=== PATIENT | female | born 1970 | race Caucasian/White ===

== ENCOUNTER 2024-07-02 06:55 | Outpatient (CLI) | payer OTHER, SELFPAY ==
--- OUTSIDE RECORDS SUMMARY | 2024-07-02 07:00 | XMS_ITS | Clinical Summary ---
Author Organization [facility] [address] Address [address] [place] [address] Phone Care Team Providers Care Wage Adjuster Name Role Phone Dmitriy Smith MD Unavailable [phone] Dmitriy Smith MD Primary Care Provider [phone] Florentin Scott MD Unavailable [phone] Allergies Active Allergy Reactions Criticality Noted Date Comments Sulfamethoxazole-Trimethoprim Nausea & Vomiting Low 09/27/2022 Medications No known medications Active Problems Problem Noted Date Diagnosed Date Physical exam, annual 08/15/2023 Assessment & Plan (08/15/2023 9:23 AM CDT): Preventive exam; reviewed recommended preventive screenings and vaccinations. Encourage annual flu vaccine. Wear sunscreen/protective clothing when outdoors. -annual clinical account executive/well-woman exam -current on mammogram -due for Cologuard/colonoscopy 01/2025, recommended screening colonoscopy at that time. Previously Cologuard. Lipid screening 08/15/2023 Assessment & Plan (08/15/2023 9:24 AM CDT): Reviewed labs today with patient. BMI 27.0-27.9,adult 08/15/2023 Assessment & Plan (08/15/2023 9:25 AM CDT): Congratulated patient on 30 lb intentional weight loss over the past 1 year, she has significantly increased activity/exercise following right knee replacement. 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 Overview (06/07/2016): Agoraphobia Encounters Date Type Department Care Team Description 05/07/2024 11:30 AM DATA ANALYTICS SPECIALIST Ancillary Procedure [facility] [address] [place] [address] Encounter for screening mammogram for breast cancer 05/07/2024 10:50 AM DATA ANALYTICS SPECIALIST Office Visit [facility] [address] [place] [address] Ben Simpson MD Encounter for gynecological examination without abnormal finding (Primary Dx); Menopausal symptoms 05/07/2024 Orders Only [facility] [address] [place] [address] Ben Simpson MD Encounter for screening mammogram for malignant neoplasm of breast (Primary Dx) 04/12/2024 Orders Only [facility] [address] [place] [address] Ben Simpson MD Encounter for screening mammogram for breast cancer (Primary Dx) from Last 3 Months Immunizations Immunization Administration Dates Next Due Influenza LAIV (Nasal) 12/01/2020(Deferred: Veronica ent Refused) Influenza, Unspecified 08/15/2023(Deferr ed: Patient Refused),12/01/2022(Deferred: Patient Refused),05/31/2022(Deferred: Patient Refused),12/21/2021(Deferred: Patient Refused),12/01/2021(Deferred: Patient Refused),06/03/2017(Deferred: Patient Refused) Tdap 08/15/2009 Surgical History Surgery Date Site/Laterality Comments KNEE ARTHROSCOPY 03/03/1991 - 03/02/1992 Arthroscopy knee KNEE ARTHROSCOPY Arthroscopy knee HERNIA REPAIR 03/03/2006 - 03/02/2007 Right Hernia repair, groin REPLACEMENT TOTAL KNEE 03/03/2022 - 03/02/2023 Right Medical History Medical History Date Comments Hx Other Medical vag. yeast infe ction 09/08 Family History Medical History Relation Name Comments Breast cancer Maternal Grandmother Onset 40s Brain cancer Other Sibling Plz verifiy if sister or brother Brain cancer Sister Cancer, brain; Relation Name Status Comments Father Alive Maternal Grandmother Mother Alive Other Sibling Alive Sister Social History Tobacco Use Types Packs/Day Years Used Date Smoking Tobacco: Former Cigarettes 0.5 12 1 1 - 2002 Passive Smoke Exposure: Past Smokeless Tobacco: Never Tobacco Cessation:Counseling Given: Not Answered Alcohol Use Standard Drinks/Week Comments Yes 1 (1 standard drink = 0.6 oz pur e alcohol) 1 X MONTH AUDIT-C Answer Date Recorded Q1: How often do you have a drink containing alc ohol? Monthly or less 09/27/2022 Q2: How many drinks containi ng alcohol do you have on a typical day when you are drinking? 1 or 2 09/27/2022 Q3: How often do you have si x or more drinks on one occasion? Never 09/27/2022 PHQ-2 Answer Date Recorded PHQ-2 Total Score (If total score is 3 or more points, staff should administer the PHQ-9) 0 08/15/2023 Personal Safety Answer Date Recorded Have you ever been in or are you currently in a harmful physical or emotional relationship or is someone making you feel afraid or unsafe? 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 Not on file Not on file Not on file Obstetrics History Para Term AB IAB SAB Ectopic Multiple Livin g Live Births 3 3 3 0 0 3 Date Outcome GA Total Labor Labor/2nd/3rd Weight Sex Type Anes PTL Cecile A1 A5 Name Clin Term Term Term Last Filed Vital Signs Vital Sign Reading Time Taken Comments Blood Pressure 102/60 05/07/2024 10:42 AM DATA ANALYTICS SPECIALIST Pulse 74 08/15/2023 8:44 AM CDT Temperature 36.8 C (98.2 F) 08/15/2023 8:44 AM CDT Respiratory Rate 16 08/15/2023 8:44 AM CDT Oxygen Saturation 97% 08/15/2023 8:44 AM CDT Inhaled Oxygen Concentration - - Weight 70.3 kg (155 lb) 05/07/2024 10:42 AM DATA ANALYTICS SPECIALIST Height 163.8 cm (5' 4.5 ) 05/07/2024 10:42 AM CS T Body Mass Index 26.19 05/07/2024 10:42 AM DATA ANALYTICS SPECIALIST Plan of Treatment Health Maintenance Due Date Last Done Comments Hepatitis C Screening 1970 Hepatitis B Screening 1990 DTaP/Tdap/Td Vaccine (2 - Td or Tdap) 08/16/2019 08/15/2009 Zoster Vaccine (1 of 2) 2022 Cervical Cancer Screening 04/12/2023 04/12/2022, 04/2017 Depression Screening 08/14/2024 08/15/2023, 08/14/2022, 12/21/2021, Additional history exists Influenza Vaccine (Season Ended) 2024 Colon Cancer Screening-DNA Stool 01/22/2025 01/22/2022 Breast Cancer Screening-Mammogram 05/07/2025 05/07/2024, 04/18/2023, 04/12/2022 Regular Well Visit/Exam 18-64 05/07/2025 05/07/2024, 08/15/2023, 04/18/2023, Additional history exists Pneumococcal vaccine <65 Aged Out No longer eligible based on patient's age to complete this topic Medical Devices Implanted Type Area Bag Maker Device Identifier Shelf Expiration Date Model / Serial / Lot [employer] Attune Fb Tib Base Sz 4 Por [id number] - [id number] Implanted:Qty: 1 on 10/09/2022 by Florentin Scott MD at [facility] Right: Knee [employer] 04/02/2032 [id number] / / [id number] [employer] Component Femoral Knee Porous Posterior Stabilized Narrow Right Attune Size 5 [employer]ley [employer] [id number] - [id number] Implanted:Qty: 1 on 10/09/2022 by Florentin Scott MD at [facility] Right: Knee [employer] 01/31/2032 [id number] / / [id number] [employer] Attune 8mm Posterior Stabilize Fix Bearing Knee 5 Insert Tibial [id number] - [id number] Implanted:Qty: 1 on 10/09/2022 by Florentin Scott MD at [facility] Right: Knee [employer] 05/01/2027 [id number] / / [id number] Procedures Procedure Name Priority Date/Time Associated Diagnosis Comments SCREENING MAMMOGRAM BILATERAL W RICHARDSON Schedule Routine, Read Routine (OP Routine) 05/07/2024 11:34 AM DATA ANALYTICS SPECIALIST Encounter for screening mammogram for breast cancer PAP AND HIGH RISK HPV, REFLEX TO GENOTYPING Routine 04/12/2022 10:04 AM DATA ANALYTICS SPECIALIST Screening for malignant neoplasm of cervix STOOL DNA COLOGUARD Routine 01/22/2022 9:15 AM DATA ANALYTICS SPECIALIST Encounter for screening colonoscopy from Last 3 Months or Most Recently Relevant to Health Maintenance Results * Screening Mammogram Bilateral W Richardson (05/07/2024 11:34 AM DATA ANALYTICS SPECIALIST) Anatomical Region Laterality Modality Breast Bilateral Mammography 05/07/2024 12:2 4 PM DATA ANALYTICS SPECIALIST Impressions 05/07/2024 12:24 PM DATA ANALYTICS SPECIALIST There is no mammographic evidence of malignancy. A 1 year screening mammogram is recommended. BI-RADS: 1 - Negative. The patient has been or will be contacted. The patient will be entered into a reminder system with a target due date of 1 year for her next mammogram. Electronically signed by: Coco Eden M.D. Narrative 05/07/2024 12:24 PM DATA ANALYTICS SPECIALIST EXAMINATION: SCREENING MAMMOGRAM BILATERAL W RICHARDSON ORDERING HEALTHCARE PROVIDER: BEN SIMPSON HISTORY: Routine screening mammography. COMPARISON: 04/18/2023, 04/12/2022, 05/20/2019 TECHNIQUE: CC and MLO views of the bilateral breasts were obtained with digital technique using breast tomosynthesis with C view. Computer aided detection was utilized. FINDINGS: DENSITY: There are scattered areas of fibroglandular density. BREASTS: There are no suspicious masses, suspicious calcifications, or other suspicious findings in either breast. There has been no suspicious interval change. us Ben Simpson MD IM MAMMO PROCEDURES Final Result * Pap and High Risk HPV, reflex to Genotyping (04/12/2022 10:04 AM DATA ANALYTICS SPECIALIST) Thin prep (Pap test) 04/12/2022 10:04 AM DATA ANALYTICS SPECIALIST 04/12/2022 10:04 AM DATA ANALYTICS SPECIALIST Narrative PATHOLOGY CH - 04/16/2022 2:51 PM DATA ANALYTICS SPECIALIST [facility] Department of Pathology [address] [place] [id number] Final Report with Addendum Note to Patients: This report may contain a detailed description of human tissue sent by a health care provider to the laboratory for pathologic evaluation. The content of this report is essential for diagnosis and may provide important critical findings. This information may be unfamiliar to patients to review without a medical professional present. It is advised that the patient review this report in the presence of a health care provider who can answer questions and explain the details. Patient Name: TORI HUMPHREY Address: [address] [place] [id number] Gender: F : 1970 (Age: 52) Service: Location: [facility] : [id number] Hospital #: [id number] Patient Type: SPECIMEN Taken: 04/12/2022 Received: 04/12/2022 Accessioned:: 04/15/2022 Reported: 04/16/2022 Physician(s): MD Ben Paul MD Diagnosis: Source of Specimen: SCREENING THIN PREP IMAGED PAP w/ HPV: Specimen Adequacy: - Specimen satisfactory for interpretation; endocervical/transformation zone component absent or insufficient General Categorization: - Negative for intraepithelial lesion or malignancy Interpretation: - Numerous inflammatory cells present FABIANA Wallace(ASCP) Report Electronically Reviewed and Signed Out By FABIANA Wallace(ASCP) 04/16/2022 14:51:25Addenda: HPV Test Interpretation NEGATIVE for types 16, 18, 31, 33, 35, 39, 45, 51, 52, 56, 58, 59, 66 and 68. Test performed utilizing Gen-Probe Aptima assay. FABIANA Jackson(ASCP)Report Electronically Reviewed and Signed Out By FABIANA Jackson(ASCP) 04/16/2022 09:25:37 Specimen(s) Received: A: SCREENING THIN PREP IMAGED PAP w/ HPV Clinical History: Last Menstrual Period: 03/26/22 The Pap test is a screening test used to aid in the detection of cervical cancer and its precursors. It should not be the sole means by which malignant and premalignant lesions are diagnosed. Both false negative and false positive results may occur. It also has poor sensitivity for the detection of endometrial lesions and should not be used to evaluate suspected endometrial abnormalities. For these reasons it is most important to obtain Pap tests at regular intervals. The performance characteristics of some immunohistochemical stains, fluorescence in-situ hybridization tests and immunophenotyping by flow cytometry cited in this report (if any) were determined by the Surgical Pathology Department at [facility] as part of an ongoing quality assurance intern program and in compliance with federally mandated regulations drawn from the Clinical Laboratory Improvement Act of 1988 (CLIA '88). Some of these tests rely on the use of analyte specific reagents and are subject to specific labeling requirements by the US Food and Drug Administration. Such diagnostic tests may only be performed in a facility that is certified by the Department of Health and Human Services as a high complexity laboratory under CLIA '88. The FDA has determined that such clearance or approval is not necessary. This test is used for clinical purposes. It should not be regarded as investigational or for research. Nevertheless, federal rules concerning the medical use of analyte specific reagents require that the following disclaimer be attached to the report: This test was developed and its performance characteristics determined by the Surgical Pathology Department [facility]. It has not been cleared or approved by the U. S. Food and Drug Administration. Ben Simpson MD LAB CYTOLOGY ORDERABL ES Final Result PATHOLOGY [address] [place] [address] * Stool DNA - Cologuard (01/22/2022 9:15 AM DATA ANALYTICS SPECIALIST) Stool DNA - Cologuard Negative Negative [employer] (CLIA #:[id number]) Comment: NEGATIVE TEST RESULT. A negative Cologuard result indicates a low likelihood that a colorectal cancer (CRC) or advanced adenoma (adenomatous polyps with more advanced pre-malignant features) is present. The chance that a person with a negative Cologuard test has a colorectal cancer is less than 1 in 1500 (negative predictive value >99.9%) or has an advanced adenoma is less than 5.3% (negative predictive value 94.7%). These data are based on a prospective cross-sectional study of 10,000 individuals at average risk for colorectal cancer who were screened with both Cologuard and colonoscopy. (Yulisa Torres et al, N Engl J Med 2014;370(14):7373-7193) The normal value (reference range) for this assay is negative. COLOGUARD RE-SCREENING RECOMMENDATION: Periodic colorectal cancer screening is an important part of preventive healthcare for asymptomatic individuals at average risk for colorectal cancer. Following a negative Cologuard result, the [place] [employer] and U.S. Multi-Society Task Force screening guidelines recommend a Cologuard re-screening interval of 3 years. References: [place] [employer] Guideline for Colorectal Cancer Screening: https://www.cancer.org/cancer/jkktl-xqbify-njcprd/pqppokpif-qkdgismpj-etwcitw/ac s-rec ommendations.html.; Andrez LILLY, Andrea SHEPPARD, Yeimy FergusonK, Colorectal Cancer Screening: Recommendations for Physicians and Patients from the U.S. Multi-Society Task Force on Colorectal Cancer Screening , Am J Gastroenterology 2017; 112:5007-5506. TEST DESCRIPTION: Composite algorithmic analysis of stool DNA-biomarkers with hemoglobin immunoassay. Quantitative values of individual biomarkers are not reportable and are not associated with individual biomarker result reference ranges. Cologuard is intended for colorectal cancer screening of adults of either sex, 45 years or older, who are at average-risk for colorectal cancer (CRC). Cologuard has been approved for use by the U.S. FDA. The performance of Cologuard was established in a cross sectional study of average-risk adults aged 50-84. Cologuard performance in patients ages 45 to 49 years was estimated by sub-group analysis of near-age groups. Colonoscopies performed for a positive result may find as the most clinically significant lesion: colorectal cancer [4.0%], advanced adenoma (including sessile serrated polyps greater than or equal to 1cm diameter) [20%] or non- advanced adenoma [31%]; or no colorectal neoplasia [45%]. These estimates are derived from a prospective cross-sectional screening study of 10,000 individuals at average risk for colorectal cancer who were screened with both Cologuard and colonoscopy. (Yulisa Torres et al, N Engl J Med 2014;370(14):7279-1423.) Cologuard may produce a false negative or false positive result (no colorectal cancer or precancerous polyp present at colonoscopy follow up). A negative Cologuard test result does not guarantee the absence of CRC or advanced adenoma (pre-cancer). The current Cologuard screening interval is every 3 years. ([place] [employer] and U.S. Multi-Society Task Force). Cologuard performance data in a 10,000 patient pivotal study using colonoscopy as the reference method can be accessed at the following location: www.[place]/results. Additional description of the Cologuard test process, warnings and precautions can be found at www.web care [facility] GmbH[employer].com. Stool 01/22/2022 9:15 AM DATA ANALYTICS SPECIALIST 01/23/2022 1:01 PM DATA ANALYTICS SPECIALIST Linda Trotter NP LAB BODY FLUIDS AND STOOLS ORDERABLES Final Result Performing Organization Address City/State/[facility] Co de Phone Number [employer] (CLIA #:[id number]) [address] [place] [place] [address] from Last 3 Months or Most Recently Relevant to Health Maintenance Insurance [facility] CIGNA CIGNA Member Subscriber Plan / Payer (Ef fective 2022-Present) Name:Tori Humphrey Relation to Subscriber:Spouse Name:Azael Humphrey Date of :1972 (Home) (Work) Address: [address] [place] [address] Payer ID:[id number] (NAIC) Group ID:[id number] Type:HAMNA HMO/PPO Address: [facility] [address] [address] Advance Directives For more information, please contact: [phone] * Full Code (Latest Code Status on File) Date Activated Date Inactivated Comments 10/09/2022 10:55 AM 10/09/2022 7:01 PM Care Teams Wage Adjuster Relationship Specialty Start Date End Date Dmitriy Smith MD [address] [place] [address] PCP - General Family Medicine 05/02/17 Dmitriy Smith MD [address] [place] [address] 04/21/17 Florentin Scott MD [address] [place] [address] [place] [address] Surgeon Orthopedic Surgery 10/09/22
--- OUTSIDE RECORDS SUMMARY | 2024-07-02 07:00 | XMS_ITS | Referral Summary ---
Author Organization [facility] [address] Address [address] [place] [address] Phone Care Team Providers Care Unit Educator Name Role Phone Dmitriy Smith MD Unavailable [phone] Dmitriy Smith MD Primary Care Provider [phone] Florentin Scott MD Unavailable [phone] Encounters Date Type Department Care Team Description 05/07/2024 Orders Only [facility] [address] [place] [address] Ben Simpson MD Encounter for screening mammogram for malignant neoplasm of breast (Primary Dx) 05/07/2024 11:30 AM COMPUTER HARDWARE DESIGNER Ancillary Procedure [facility] [address] [place] [phone] Encounter for screening mammogram for breast cancer 05/07/2024 10:50 AM COMPUTER HARDWARE DESIGNER Office Visit [facility] [address] [place] [address] Ben Simpson MD Encounter for gynecological examination without abnormal finding (Primary Dx); Menopausal symptoms 04/12/2024 Orders Only [facility] [address] [place] [address] Ben Simpson MD Encounter for screening mammogram for breast cancer (Primary Dx) from Last 3 Months Allergies Active Allergy Reactions Criticality Noted Date Comments Sulfamethoxazole-Trimethoprim Nausea & Vomiting Low 09/27/2022 Medications No known medications Active Problems Problem Noted Date Diagnosed Date Physical exam, annual 08/15/2023 Assessment & Plan (08/15/2023 9:23 AM CDT): Preventive exam; reviewed recommended preventive screenings and vaccinations. Encourage annual flu vaccine. Wear sunscreen/protective clothing when outdoors. 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 -current on mammogram -due for Cologuard/colonoscopy [...] D deficiency Agoraphobia 08/15/2009 Overview (06/07/2016): Agoraphobia Immunizations Immunization Administration Dates Next Due Influenza LAIV (Nasal) 12/01/2020(Deferred: Veronica ent Refused) Influenza, Unspecified 08/15/2023(Deferr ed: Patient Refused),12/01/2022(Deferred: Patient Refused),05/31/2022(Deferred: Patient Refused),12/21/2021(Deferred: Patient Refused),12/01/2021(Deferred: Patient Refused),06/03/2017(Deferred: Patient Refused) Tdap 08/15/2009 Social History Tobacco Use Types Packs/Day Years Used Date Smoking Tobacco: Former Cigarettes 0.5 12 1 991 - 2003 Passive Smoke Exposure: Past Smokeless Tobacco: Never [...] on file Legal Sex Female 9:38 AM COMPUTER HARDWARE DESIGNER Gender Identity Not on file Sexual Orientation Not on file 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 Not on file Not on file Not on file Last Filed Vital Signs Vital Sign Reading Time Taken Comments Blood Pressure 102/60 05/07/2024 10:42 AM COMPUTER HARDWARE DESIGNER Pulse 74 08/15/2023 8:44 AM CDT Temperature 36.8 C (98.2 F) 08/15/2023 8:44 AM CDT Respiratory Rate 16 08/15/2023 8:44 AM CDT Oxygen Saturation 97% 08/15/2023 8:44 AM CDT Inhaled Oxygen Concentration - - Weight 70.3 kg (155 lb) 05/07/2024 10:42 AM COMPUTER HARDWARE DESIGNER Height 163.8 cm (5' 4.5 ) 05/07/2024 10:42 AM CS T Body Mass Index 26.19 05/07/2024 10:42 AM COMPUTER HARDWARE DESIGNER Plan of Treatment Not on file Medical Devices Implanted Type Area Religious Education Teacher Device Identifier Shelf Expiration Date Model / Serial / Lot Depuy Orthopa[employer] Attune Fb Tib Base Sz 4 Por [id number] - [id number] Implanted:Qty: 1 on 10/09/2022 by Florentin Scott MD at [facility] Right: Knee [employer] 04/02/2032 [id number] / / [id number] [employer] Component Femoral Knee Porous Posterior Stabilized Narrow Right Attune Size 5 [place] Chromium [id number] - [id number] Implanted:Qty: 1 on 10/09/2022 by Florentin Scott MD at [facility] Right: Knee [employer] 01/31/2032 [id number] / / [id number] Dep[employer] Attune 8mm Posterior Stabilize Fix Bearing Knee 5 Insert Tibial [id number] - [id number] Implanted:Qty: 1 on 10/09/2022 by Florentin Scott MD at [facility] Right: Knee [employer] 05/01/2027 [id number] / / [id number] Procedures Procedure Name Priority Date/Time Associated Diagnosis Comments SCREENING MAMMOGRAM BILATERAL W RICHARDSON Schedule Routine, Read Routine (OP Routine) 05/07/2024 11:34 AM COMPUTER HARDWARE DESIGNER Encounter for screening mammogram for breast cancer PAP AND HIGH RISK HPV, REFLEX TO GENOTYPING Routine 04/12/2022 10:04 AM COMPUTER HARDWARE DESIGNER Screening for malignant neoplasm of cervix STOOL DNA COLOGUARD Routine 01/22/2022 9:15 AM COMPUTER HARDWARE DESIGNER Encounter for screening colonoscopy from Last 3 Months or Most Recently Relevant to Health Maintenance Results * Screening Mammogram Bilateral W Richardson (05/07/2024 11:34 AM COMPUTER HARDWARE DESIGNER) Anatomical Region Laterality Modality Breast Bilateral Mammography 05/07/2024 12:2 4 PM COMPUTER HARDWARE DESIGNER Impressions 05/07/2024 12:24 PM COMPUTER HARDWARE DESIGNER There is no mammographic evidence of malignancy. A 1 year screening mammogram is recommended. BI-RADS: 1 - Negative. The patient has been or will be contacted. The patient will be entered into a reminder system with a target due date of 1 year for her next mammogram. Electronically signed by: Vinay Raymond 05/07/2024 12:24 PM COMPUTER HARDWARE DESIGNER EXAMINATION: SCREENING MAMMOGRAM BILATERAL W RICHARDSON ORDERING [...] There has been no suspicious interval change. Ben Simpson MD IM MAMMO PROCEDURES Final Result * Pap and High Risk HPV, reflex to Genotyping (04/12/2022 10:04 AM COMPUTER HARDWARE DESIGNER) Thin prep (Pap test) 04/12/2022 10:04 AM COMPUTER HARDWARE DESIGNER 04/12/2022 10:04 AM COMPUTER HARDWARE DESIGNER Narrative PATHOLOGY CH - 04/16/2022 2:51 PM COMPUTER HARDWARE DESIGNER [facility] Department of Pathology [address] [place] [address] Final Report with Addendum Note to Patients: [...] the details. Patient Name: TORI HUMPHREY [address]: [address] [place] [id number] Gender: F : 1970 (Age: 52) Service: Location: N : [id number] [facility] #: [id number] Patient Type: SPECIMEN Taken: 04/12/2022 Received: 04/12/2022 [...] Report Electronically Reviewed and Signed Out By CATHY WallaceASCP) 04/16/2022 14:51:25Addenda: HPV Test Interpretation NEGATIVE for types 16, 18, 31, 33, 35, 39, 45, 51, 52, 56, 58, 59, 66 and 68. Test performed utilizing Gen-Probe Aptima assay. FABIANA Jackson(ASCP)Report Electronically Reviewed and Signed Out By CATHY JacksonASCP) 04/16/2022 09:25:37 Specimen(s) Received: A: SCREENING THIN [...] determined by the Surgical Pathology Department at [facility] as part of an ongoing corporate quality assurance manager program and in compliance with federally mandated [...] characteristics determined by the Surgical Pathology Department [facility]. It has not been cleared or approved by the U. S. Food and Drug Administration. Ben Simpson MD LAB [place]OLOGY [place] [address] [place] [address] * Stool DNA - Cologuard (01/22/2022 9:15 AM COMPUTER HARDWARE DESIGNER) Stool DNA - Cologuard Negative Negative [employer] (CLIA #:[id number]) Comment: NEGATIVE TEST RESULT. A negative Cologuard [...] screened with both Cologuard and colonoscopy. (Yulisa Gao al, N Engl J Med 2014;370(14):1766-2657) The normal value (reference range) for this assay is negative. COLOGUARD RE-SCREENING RECOMMENDATION: Periodic colorectal cancer screening is an important part of preventive healthcare for asymptomatic individuals at average risk for colorectal cancer. Following a negative Cologuard result, the [place] Cancer Society and U.S. Multi-Society Task Force screening guidelines recommend a Cologuard re-screening interval of 3 years. References: [place] Cancer Society Guideline for Colorectal Cancer Screening: https://www.cancer.org/cancer/jvcsw-pvdrck-jrjrgd/anwyxkskp-gbhhkbovu-yezxtjs/ac s-rec ommendations.html.; Andrez DK, Andrea CR, Yeimy FergusonK, Colorectal Cancer Screening: Recommendations for Physicians and Patients from the U.S. Multi-Society Task Force on Colorectal Cancer Screening , Am J Gastroenterology 2017; 112:0327-8657. TEST DESCRIPTION: Composite algorithmic analysis of stool [...] screened with both Cologuard and colonoscopy. (Yulisa Gao al, N Engl J Med 2014;370(14):3123-6572.) Cologuard may produce a false negative or false positive result (no colorectal cancer or precancerous polyp present at colonoscopy follow up). A negative Cologuard test result does not guarantee the absence of CRC or advanced adenoma (pre-cancer). The current Cologuard screening interval is every 3 years. ([place] Cancer Society and U.S. Multi-Society Task Force). Cologuard performance data in a 10,000 patient pivotal study using colonoscopy as the reference method can be accessed at the following location: www.[employer]/results. Additional description of the Cologuard test process, warnings and precautions can be found at www.[email or web address].[email or web address]. Stool 01/22/2022 9:15 AM COMPUTER HARDWARE DESIGNER 01/23/2022 1:01 PM COMPUTER HARDWARE DESIGNER us Linda Trotter NP LAB BODY FLUIDS AND STOOLS ORDERABLES Final Result [employer] (CLIA #:[id number]) [address] [place] [address] from Last 3 Months or Most Recently Relevant to Health Maintenance Insurance [employer] CIGNA CIGNA Member Subscriber Plan / Payer (Ef fective 2022-) Name:Tori Humphrey Relation to Subscriber:Spouse Name:Azael Humphrey Date of :1972 (Home) (Work) Address: [address] [place] [address] [place] [address] Payer ID:[id number] (NAIC) Group ID:[id number] Type:CIGNA HMO/PPO Address: [facility] [id number] [place] [phone] Advance Directives For more information, please contact: [phone] * Full Code (Latest Code Status on File) Date Activated Date Inactivated Comments 10/09/2022 10:55 AM 10/09/2022 7:01 PM Care Teams Unit Educator Relationship Specialty Start Date End Date Dmitriy Smith MD [address] [place] [address] PCP - General Family Medicine 05/02/17 Dmitriy Smith MD [address] [place] [address] 04/21/17 Florentin Scott MD [address] [place] [address] [place] [address] Surgeon Orthopedic Surgery 10/09/22
[2024-07-02 07:25] LABS: Hemoglobin 12.4 g/dL (12.0-15.0); Mean Corpuscular HGB Conc 31.8 g/dl (32-36); Mean Corpuscular Hemoglobin 30.5 pg (26-34); Mean Corpuscular Volume 95.8 fl (80-100); Mean Platelet Volume 10.7 fl (7.4-10.4); Platelet Count Result 191 k/mm3 (150-375); Red Blood Count 4.07 M/mm3 (4.2-5.4); Red Cell Distribution Width 14.4 % (11.5-14.5); White Blood Count 4.9 K/mm3 (4.5-10.0)
[2024-07-02 07:47] LABS: Albumin Level 3.9 g/dL (3.5-5.1); Anion Gap 5 mmol/L (4-12); Blood Urea Nitrogen 19 mg/dL (7-17); Calcium 8.9 mg/dL (8.4-10.2); Carbon Dioxide 30 mmol/L (22-30); Chloride 106 mmol/L (98-107); Estimated Glomerular Filt Rate > 60; Glucose 97 mg/dL (65-110); Potassium 3.9 mmol/L (3.4-5.0); Sodium 141 mmol/L (137-145)
[2024-07-02 07:54] LABS: Prealbumin 19.8 mg/dL (17.6-36.0)
[2024-07-02 08:07] LABS: Iron 89 ug/dL (37-170)
[2024-07-07 08:54] LABS: Vitamin B1 14 nmol/L (8-30)
== END 2024-07-02 06:56 | disposition home or self-care (01) ==
PROVIDERS: PCP Family Medicine; Visit Provider Surgery Plastic and Reconstructive Surgery
DX: Z01.818 Encounter for other preprocedural examination (principal)
CPT/HCPCS: 36415; 80048; 82040; 83540; 84134; 84425; 85027

== ENCOUNTER 2024-07-27 00:39 | Day surgery (SDC) | payer OTHER, SELFPAY ==
[2024-07-15 14:49] VITALS: BMI 25.0
--- NOTE | 2024-07-15 14:55 | PC.NURSE ---
Report to the Outpatient Waiting Room, entrance under the green pavilion located off [facility], at time _0830_ on date _[id number]_. Planned Procedure Time: _1030_.? Time changes happen often and if your time is changed the preop area will call you the afternoon before. - You and your visitor will be asked to self-screen and do not enter if you have any COVID symptoms. Please call surgeon if you need to reschedule. - A mask is optional within the hospital at this time. Patients may have clear liquids (water, carbonated beverages, clear teas, apple juice) until 3 hours prior to surgery with a maximum of 20 ounces. - No food from midnight until time of surgery and no smoking, or chewing tobacco (or any form of nicotine). No chewing gum, candy or mints. Take only the following medications with a SIP of water on the morning of surgery: ___None____ DO NOT STOP ANY OF YOUR OTHER PRESCRIPTION MEDICATIONS PRIOR TO SURGERY EXCEPT THE FOLLOWING Hold all vitamins and supplements for 3 days per anesthesiologist. Medications to discontinue per physician Date to take last dose Please no make-up, nail malay, hairspray, perfume, deodorant, or body powder the day of surgery.? No jewelry (including any body piercings) or valuables the day of surgery, leave them at home.? Please take a shower or bath the night before, or the morning of, surgery with an antibacterial soap.? Wear comfortable, loose fitting clothing.? - Jewelry must be removed prior to entering the operating room.? Rings and piercings that are not removed may be cut off. - The hospital will not accept responsibility for valuables.? - Please leave all valuables, including medications, at home the day of surgery. If you are going home after surgery, a licensed rail car driver must drive you home.? - NO public transportation without another adult if you receive anesthesia. - We recommend that an adult stay with you for 24 hours following discharge. - We also recommend that you do not drive, make important decision, drink alcoholic beverages, or take any drugs that were not prescribed by your health care provider for at least 24 hours after your discharge time. Follow any additional instructions given to you from your surgeon. Telephone instructions given to __Tammy___and asked if any additional questions and then verbalized understanding. Patient advised to call surgeon office or pre surgery nurse liaison [phone] if any additional questions.
[2024-07-27] VITALS (7 sets, daily range): BP systolic 111–126; BP diastolic 61–78; PULSE 63–98; RESP 12–16; TEMP 36.4–36.7; O2SAT 99–100
--- OUTSIDE RECORDS SUMMARY | 2024-07-27 00:41 | XMS_ITS | Referral Summary ---
Author Organization [facility] [address] Address [address] [place] [address] Phone Care Team Providers Care Customer Service Security Officer Name Role Phone Dmitriy Smith MD Unavailable [phone] Dmitriy Smith MD Primary Care Provider [phone] Florentin Scott MD Unavailable Encounters Date Type Department Care Team Description 07/02/2024 Orders Only [facility] Health Information Management [address] [place] [id number] Scanning, Provider 05/07/2024 Orders Only [facility] [address] [place] [address] Ben Simpson MD Encounter for screening mammogram for malignant neoplasm of breast (Primary Dx) 05/07/2024 11:30 AM FINANCIAL MANAGEMENT ANALYST Ancillary Procedure [facility] [address] [place] [address] Encounter for screening mammogram for breast cancer 05/07/2024 10:50 AM FINANCIAL MANAGEMENT ANALYST Office Visit [facility] [address] [place] [address] Ben Simpson MD Encounter for gynecological examination without abnormal finding (Primary Dx); Menopausal symptoms from Last 3 Months Allergies Active Allergy Reactions Criticality Noted Date Comments Sulfamethoxazole-Trimethoprim Nausea & Vomiting Low 09/27/2022 Medications No known medications Active Problems Problem Noted Date Diagnosed Date Physical exam, annual 08/15/2023 Assessment & Plan (08/15/2023 9:23 AM CDT): Preventive exam; reviewed recommended preventive screenings and vaccinations. Encourage annual flu vaccine. Wear sunscreen/protective clothing when outdoors. 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 Not on file Not on file Last Filed Vital Signs Vital Sign Reading Time Taken Comments Blood Pressure 102/60 05/07/2024 10:42 AM FINANCIAL MANAGEMENT ANALYST Pulse 74 08/15/2023 8:44 AM CDT Temperature 36.8 C (98.2 F) 08/15/2023 8:44 AM CDT Respiratory Rate 16 08/15/2023 8:44 AM CDT Oxygen Saturation 97% 08/15/2023 8:44 AM CDT Inhaled Oxygen Concentration - - Weight 70.3 kg (155 lb) 05/07/2024 10:42 AM FINANCIAL MANAGEMENT ANALYST Height 163.8 cm (5' 4.5) 05/07/2024 10:42 AM CS T Body Mass Index 26.19 05/07/2024 10:42 AM FINANCIAL MANAGEMENT ANALYST Plan of Treatment Not on file Medical Devices Implanted Type Area Forest Fire Officer Device Identifier Shelf Expiration Date Model / Serial / Lot Depuy [employer] Attune Fb Tib Base Sz 4 Por [id number] - [id number] Implanted:Qty: 1 on 10/09/2022 by Florentin Scott MD at [facility] Right: Knee [employer] 04/02/2032 [id number] / / [id number] [employer] Component Femoral Knee Porous Posterior Stabilized Narrow Right Attune Size 5 [place] Chromium [id number] - [id number] Implanted:Qty: 1 on 10/09/2022 by Florentin Scott MD at [facility] Right: Knee [employer] 01/31/2032 [id number] / / [id number] [employer] Attune 8mm Posterior Stabilize Fix Bearing Knee 5 Insert Tibial [id number] - [id number] Implanted:Qty: 1 on 10/09/2022 by Florentin Scott MD at [facility] Right: Knee [employer] 05/01/2027 [id number] / / [id number] Procedures Procedure Name Priority Date/Time Associated Diagnosis Comments SCAN - LABS 07/02/2024 SCREENING MAMMOGRAM BILATERAL W RICHARDSON Schedule Routine, Read Routine (OP Routine) 05/07/2024 11:34 AM FINANCIAL MANAGEMENT ANALYST Encounter for screening mammogram for breast cancer PAP AND HIGH RISK HPV, REFLEX TO GENOTYPING Routine 04/12/2022 10:04 AM FINANCIAL MANAGEMENT ANALYST Screening for malignant neoplasm of cervix STOOL DNA COLOGUARD Routine 01/22/2022 9:15 AM FINANCIAL MANAGEMENT ANALYST Encounter for screening colonoscopy from Last 3 Months or Most Recently Relevant to Health Maintenance Results * SCAN - LABS (07/02/2024) us Provider Scanning Edited Result - Final * Screening Mammogram Bilateral W Richardson (05/07/2024 11:34 AM FINANCIAL MANAGEMENT ANALYST) Anatomical Region Laterality Modality Breast Bilateral Mammography 05/07/2024 12:2 4 PM FINANCIAL MANAGEMENT ANALYST Impressions 05/07/2024 12:24 PM FINANCIAL MANAGEMENT ANALYST There is no mammographic evidence of malignancy. A 1 year screening mammogram is recommended. BI-RADS: 1 - Negative. The patient has been or will be contacted. The patient will be entered into a reminder system with a target due date of 1 year for her next mammogram. Electronically signed by: Coco Eden M.D. Narrative 05/07/2024 12:24 PM FINANCIAL MANAGEMENT ANALYST EXAMINATION: SCREENING MAMMOGRAM BILATERAL W RICHARDSON ORDERING [...] suspicious interval change. us Ben Simpson MD IMG MAMMO PROCEDURES Final Result * Pap and High Risk HPV, reflex to Genotyping (04/12/2022 10:04 AM FINANCIAL MANAGEMENT ANALYST) Thin prep (Pap test) 04/12/2022 10:04 AM FINANCIAL MANAGEMENT ANALYST 04/12/2022 10:04 AM FINANCIAL MANAGEMENT ANALYST Narrative PATHOLOGY CH - 04/16/2022 2:51 PM FINANCIAL MANAGEMENT ANALYST [facility] Department of Pathology [address] [place] [address] Final Report with Addendum Note to Patients: [...] the details. Patient Name: TORI HUMPHREY Address: [address] [place] [id number] Gender: F : 1970 (Age: 52) Service: Location: [facility] #: [id number] Patient Type: SPECIMEN Taken: 04/12/2022 Received: 04/12/2022 [...] determined by the Surgical Pathology Department at [facility] as part of an ongoing quality assurance supervisor body program and in compliance with federally mandated [...] characteristics determined by the Surgical Pathology Department [facility]. It has not been cleared or approved by the U. S. Food and Drug Administration. Ben Simpson MD LAB CYTOLOGY ORDERABL ES Final Result PATHOLOGY [address] [place] [address] * Stool DNA - Cologuard (01/22/2022 9:15 AM FINANCIAL MANAGEMENT ANALYST) Stool DNA - Cologuard Negative Negative [employer] (CLIA #:[id number]) Comment: NEGATIVE TEST RESULT. A negative Cologuard [...] Torres et al, N Engl J Med 2014;370(14):0539-8018) The normal value (reference range) for this assay is negative. COLOGUARD RE-SCREENING RECOMMENDATION: Periodic colorectal cancer screening is an important part of preventive healthcare for asymptomatic individuals at average risk for colorectal cancer. Following a negative Cologuard result, the [place] Cancer Society and U.S. Multi-Society Task Force screening guidelines recommend a Cologuard re-screening interval of 3 years. References: [place] Cancer Society Guideline for Colorectal Cancer Screening: https://www.cancer.org/cancer/quxbs-cjknhh-lacarm/hjpncnllr-mklxyxsfh-rulosmx/ac s-rec ommendations.html.; Andrez DK, Andrea CR, Yeimy FergusonK, Colorectal Cancer Screening: Recommendations for Physicians and Patients from the U.S. Multi-Society Task Force on Colorectal Cancer Screening , Am J Gastroenterology 2017; 112:0628-8917. TEST DESCRIPTION: Composite algorithmic analysis of stool [...] Torres et al, N Engl J Med 2014;370(14):4885-5334.) Cologuard may produce a false negative or false positive result (no colorectal cancer or precancerous polyp present at colonoscopy follow up). A negative Cologuard test result does not guarantee the absence of CRC or advanced adenoma (pre-cancer). The current Cologuard screening interval is every 3 years. ([place] Cancer Society and U.S. Multi-Society Task Force). Cologuard performance data in a 10,000 patient pivotal study using colonoscopy as the reference method can be accessed at the following location: www.[employer]/results. Additional description of the Cologuard test process, warnings and precautions can be found at www.[employer]SellerogAvubard.com. Stool 01/22/2022 9:15 AM FINANCIAL MANAGEMENT ANALYST 01/23/2022 1:01 PM FINANCIAL MANAGEMENT ANALYST us Linda Trotter NP LAB BODY FLUIDS AND STOOLS ORDERABLES Final Result [employer] (CLIA #:[id number]) [place] [address] from Last 3 Months or Most Recently Relevant to Health Maintenance Insurance [facility] CIG CIGNA Member Subscriber Plan / Payer (Ef fective 2022-Present) Name:Tori Humphrey Relation to Subscriber:Spouse Name:Azael Humphrey Date of :1972 (Home) (Work) Address: [address] [place] [address] [place] [address] Payer ID:[id number] (NAIC) Group ID:[id number] Type:CIGNA HMO/PPO Address: [facility] [id number] [place] [phone] Advance Directives For more information, please contact: [phone] * Full Code (Latest Code Status on File) Date Activated Date Inactivated Comments 10/09/2022 10:55 AM 10/09/2022 7:01 PM Care Teams Customer Service Security Officer Relationship Specialty Start Date End Date Dmitriy Smith MD [address] [place] [address] PCP - General Family Medicine 05/02/17 Dmitriy Smith MD [address] [place] [address] 04/21/17 Florentin Scott MD [address] [facility] [place] [address] Surgeon Orthopedic Surgery 10/09/22
--- OUTSIDE RECORDS SUMMARY | 2024-07-27 00:41 | XMS_ITS | Clinical Summary ---
Author Organization [facility] [address] [email or web address] [address] Address [address] [place] [address] Phone Care Team Providers Care Rib Puller Name Role Phone Dmitriy Smith MD Unavailable [phone] Dmitriy Smith MD Primary Care Provider [phone] Florentin Scott MD Unavailable [phone] Allergies Active Allergy Reactions Criticality Noted Date Comments Sulfamethoxazole-Trimethoprim Nausea & Vomiting Low 09/27/2022 Medications No known medications Active Problems Problem Noted Date Diagnosed Date Physical exam, annual 08/15/2023 Assessment & Plan (08/15/2023 9:23 AM CDT): Preventive exam; reviewed recommended preventive screenings and vaccinations. Encourage annual flu vaccine. Wear sunscreen/protective clothing when outdoors. 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 -current on mammogram -due for Cologuard/colonoscopy [...] Department Care Team Description 07/02/2024 Orders Only [facility] [address] [place] [address] Scanning, Provider 05/07/2024 11:30 AM TOY ASSEMBLY SUPERVISOR Ancillary Procedure [facility] [address] [place] [address] Encounter for screening mammogram for breast cancer 05/07/2024 10:50 AM TOY ASSEMBLY SUPERVISOR Office Visit [facility] [address] [place] [address] Ben Simpson MD Encounter for gynecological examination without abnormal finding (Primary Dx); Menopausal symptoms 05/07/2024 Orders Only [facility] [address] [place] [address] Ben Simpson MD Encounter for screening mammogram for malignant neoplasm of breast (Primary Dx) from Last 3 Months Immunizations [...] on file Legal Sex Female 9:38 AM TOY ASSEMBLY SUPERVISOR Gender Identity Not on file Sexual Orientation Not on file 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 Not on file Not on file Not on file Obstetrics History Para Term AB IAB SAB Ectopic Multiple Livin g Live Births 3 3 3 0 0 3 Date Outcome GA Total Labor Labor/2nd/3rd Weight Sex Type Anes PTL Cecile A1 A5 Name Clin Term Term Term Last Filed Vital Signs Vital Sign Reading Time Taken Comments Blood Pressure 102/60 05/07/2024 10:42 AM TOY ASSEMBLY SUPERVISOR Pulse 74 08/15/2023 8:44 AM CDT Temperature 36.8 C (98.2 F) 08/15/2023 8:44 AM CDT Respiratory Rate 16 08/15/2023 8:44 AM CDT Oxygen Saturation 97% 08/15/2023 8:44 AM CDT Inhaled Oxygen Concentration - - Weight 70.3 kg (155 lb) 05/07/2024 10:42 AM TOY ASSEMBLY SUPERVISOR Height 163.8 cm (5' 4.5) 05/07/2024 10:42 AM CS T Body Mass Index 26.19 05/07/2024 10:42 AM TOY ASSEMBLY SUPERVISOR Plan of Treatment Health Maintenance Due Date [...] this topic Medical Devices Implanted Type Area Help Desk Intern Device Identifier Shelf Expiration Date Model / Serial / Lot [employer] Attune Fb Tib Base Sz 4 Por [id number] - [id number] Implanted:Qty: 1 on 10/09/2022 by Florentin Scott MD at [facility] Right: Knee [employer] 04/02/2032 [id number] / / [id number] [employer] Component Femoral Knee Porous Posterior Stabilized Narrow Right Attune Size 5 [employer] [id number] - [id number] Implanted:Qty: 1 on 10/09/2022 by Florentin Scott MD at [facility] Right: Knee [employer] 01/31/2032 [id number] / / [id number] [employer] Attune 8mm Posterior Stabilize Fix Bearing Knee 5 Insert Tibial [id number] - [id number] Implanted:Qty: 1 on 10/09/2022 by Florentin Scott MD at [facility] Right: Knee [employer] 05/01/2027 [id number] / / [id number] Procedures Procedure Name Priority Date/Time Associated Diagnosis Comments SCAN - LABS 07/02/2024 SCREENING MAMMOGRAM BILATERAL W RICHARDSON Schedule Routine, Read Routine (OP Routine) 05/07/2024 11:34 AM TOY ASSEMBLY SUPERVISOR Encounter for screening mammogram for breast cancer PAP AND HIGH RISK HPV, REFLEX TO GENOTYPING Routine 04/12/2022 10:04 AM TOY ASSEMBLY SUPERVISOR Screening for malignant neoplasm of cervix STOOL DNA COLOGUARD Routine 01/22/2022 9:15 AM TOY ASSEMBLY SUPERVISOR Encounter for screening colonoscopy from Last 3 Months or Most Recently Relevant to Health Maintenance Results * SCAN - LABS (07/02/2024) us Provider Scanning Edited Result - Final * Screening Mammogram Bilateral W Richardson (05/07/2024 11:34 AM TOY ASSEMBLY SUPERVISOR) Anatomical Region Laterality Modality Breast Bilateral Mammography 05/07/2024 12:2 4 PM TOY ASSEMBLY SUPERVISOR Impressions 05/07/2024 12:24 PM TOY ASSEMBLY SUPERVISOR There is no mammographic evidence of malignancy. A 1 year screening mammogram is recommended. BI-RADS: 1 - Negative. The patient has been or will be contacted. The patient will be entered into a reminder system with a target due date of 1 year for her next mammogram. Electronically signed by: Coco Eden M.D. Narrative 05/07/2024 12:24 PM TOY ASSEMBLY SUPERVISOR EXAMINATION: SCREENING MAMMOGRAM BILATERAL W RICHARDSON ORDERING [...] HPV, reflex to Genotyping (04/12/2022 10:04 AM TOY ASSEMBLY SUPERVISOR) Thin prep (Pap test) 04/12/2022 10:04 AM TOY ASSEMBLY SUPERVISOR 04/12/2022 10:04 AM TOY ASSEMBLY SUPERVISOR Narrative PATHOLOGY CH - 04/16/2022 2:51 PM TOY ASSEMBLY SUPERVISOR [facility] Department of Pathology [address] [place], [place] [id number] Final Report with Addendum Note to Patients: [...] the details. Patient Name: TORI HUMPHREY Address: [address] [place] [id number] Gender: F : 1970 (Age: 52) Service: Location: [facility] : [id number] Hospital #: [id number] Patient Type: SPECIMEN Taken: 04/12/2022 Received: 04/12/2022 [...] determined by the Surgical Pathology Department at [facility] as part of an ongoing air quality manager program and in compliance with federally [...] characteristics determined by the Surgical Pathology Department [facility]. It has not been cleared or approved by the U. S. Food and Drug Administration. Ben Simpson MD LAB CYTOLOGY ORDERABL ES Final Result PATHOLOGY [address] [place] [address] * Stool DNA - Cologuard (01/22/2022 9:15 AM TOY ASSEMBLY SUPERVISOR) Pathologist [facility] Stool DNA - Cologuard Negative Negative [email or web address] (CLIA #:[id number]) Comment: NEGATIVE TEST RESULT. A negative Cologuard [...] (Yulisa Gao al, N Engl J Med 2014;370(14):6444-0550) The normal value (reference range) for this assay is negative. COLOGUARD RE-SCREENING RECOMMENDATION: Periodic colorectal cancer screening is an important part of preventive healthcare for asymptomatic individuals at average risk for colorectal cancer. Following a negative Cologuard result, the [place] Cancer Society and U.S. Multi-Society Task Force screening guidelines recommend a Cologuard re-screening interval of 3 years. References: [place] Cancer Society Guideline for Colorectal Cancer Screening: https://www.cancer.org/cancer/lckxt-utctoo-kdrkdx/mopcxvhls-otwoyjtvd-juouzcj/ac s-rec ommendations.html.; Andrez DK, Andrea CR, Yeimy FergusonK, Colorectal Cancer Screening: Recommendations for Physicians and Patients from the U.S. Multi-Society Task Force on Colorectal Cancer Screening , Am J Gastroenterology 2017; 112:3640-5305. TEST DESCRIPTION: Composite algorithmic analysis of stool [...] Torres et al, N Engl J Med 2014;370(14):5793-0621.) Cologuard may produce a false negative or false positive result (no colorectal cancer or precancerous polyp present at colonoscopy follow up). A negative Cologuard test result does not guarantee the absence of CRC or advanced adenoma (pre-cancer). The current Cologuard screening interval is every 3 years. ([place] Cancer Society and U.S. Multi-Society Task Force). Cologuard performance data in a 10,000 patient pivotal study using colonoscopy as the reference method can be accessed at the following location: www.[employer]/results. Additional description of the Cologuard test process, warnings and precautions can be found at www.[employer]. Stool 01/22/2022 9:15 AM TOY ASSEMBLY SUPERVISOR 01/23/2022 1:01 PM TOY ASSEMBLY SUPERVISOR Linda Trotter NP LAB BODY FLUIDS AND STOOLS ORDERABLES Final Result [employer] (CLIA #:[id number]) [address] [place] [address] from Last 3 Months or Most Recently Relevant to Health Maintenance Insurance [employer] C[employer] Member Subscriber Plan / Payer (Ef fective 2022-Present) Name:Tori Humphrey Relation to Subscriber:Spouse Name:Azael Humphrey Date of :1972 (Home) (Work) Address: [address] [place] [address] [place] [address] Payer ID:[id number] (NAIC) Group ID:[id number] Type:CIGNA HMO/PPO Address: [facility] [id number] [id number] Advance Directives For more information, please contact: [phone] * Full Code (Latest Code Status on File) Date Activated Date Inactivated Comments 10/09/2022 10:55 AM 10/09/2022 7:01 PM Care Teams Rib Puller Relationship Specialty Start Date End Date Dmitriy Smith MD [address] [place] [address] PCP - General Family Medicine 05/02/17 Dmitriy Smith MD [address] [place] [address] 04/21/17 Florentin Scott MD [address] [address] Surgeon Orthopedic Surgery 10/09/22
[2024-07-27] MEDS: LACTATED RINGERS 1,000 ML 30 ML IV CONT ×2 (09:08→13:18)
[2024-07-27 09:53] LABS: Urine Cotinine NEGATIVE
--- NOTE | 2024-07-27 10:17 | WPDHPUPDATE1 ---
History and Physical Update Update Date/Time: 07/27/24 10:17 History and Physical has been reviewed, including an updated exam of the patient. There are NO changes in the patient's condition. Risks, benefits, and alternatives have been discussed and questions answered. Patient agrees to proceed with procedure.
--- NOTE | 2024-07-27 10:22 | W.PM.PROC2 ---
Procedure Note - Detailed Date of Procedure 07/27/24 Pre-op Diagnosis dermatochalasis lower lids Post-op Diagnosis Same Procedure Performed Bilateral lower eyelid transconjuctival blepharoplasty with pinch blepharoplasty, canthopexy, fat grafting Surgeon Mauro Jorgensen MD Anesthesia General Description of Procedure Preoperatively risks, benefits, alternatives were discussed in extensive detail. I want them to be very realistic about the risks involved as well as expectations. Discussed what we can and cannot improved. Limitations of this procedure. Alternative procedure as well as adjuvant procedures. This was a lengthy open-ended conversation discussing realistic expectations of outcome. Answered all of their questions to their satisfaction. Consent obtained. Taken to the operating room placed supine on the operating room table. Anesthesia provided by anesthesiology. Prepped and draped in a standard sterile fashion. 1% lidocaine and 0.25% Marcaine with epinephrine was used anesthetize locally with low volume of local to protect from distortion of structures. Eyes were irrigated with BSS. Tetracaine eyedrops placed. Corneal protectors also placed. Fat grafting donor site was also prepped and draped in a standard sterile fashion. Stab incision was made and tumescent was utilized for hemostasis. Suction lipectomy was completed with hand lipo and placed for gravity separation utilizing a 3mm multi-hole suction cannula. Needle-tip cautery was used to incise just inferior to the tarsus and a transconjunctival lower lid blepharoplasty technique. The conjunctiva was retracted with a 5-0 nylon. I elevated in a preseptal fashion down to the level of the rim. At this point I entered the nasal, middle, and lateral compartments and removed only what was clearly excess adiposity. I verified strict hemostasis throughout. I verified that the inferior oblique was protected during this procedure. With gentle pressure on the globe I verified the contour the lower lids. Both lids proceeded in the same manner. Canthotomy and cantholysis completed bilateral. Retraction suture and corneal protectors were removed. Copious irrigated again with BSS solution. Excess taken as wedge and closed with 4-0 Vicryl to repair tarsal plate. Pinch lower blepharoplasty completed. Tissue to be removed estimated and a sharply excised. This was closed with 5-0 plain gut suture as well as resected canthopexy. Only the central fat from the syringes were used. These were passed through [employer] grafting decrease size t0 2.4 microns. 18 gauge needle utilized to make stab incisions. Fat infiltrated on tulip fat grafting cannulas in multiple plans and passes based on preoperative planning and intraoperative observation. Forced duction test completed. Again irrigated with BSS. Patient was woken taken the PACU without difficulty. All instrument sponge counts were correct at the end the case. Estimated Blood Loss 5 Drains No Packing No Pathology None sent Complications No immediate complications Condition Stable Disposition PACU
--- NOTE | 2024-07-27 10:40 | WPDANESEPPF ---
Anes - Initial Pre Proc Eval Procedure: Operation Date: 07/27/24 10:30 Proposed Procedures p Bilateral Transconjunctival Lower Eyelid Blepharoplasty with Lower Eyelid Fat Grafting, Possible Canthopexy Versus Tarsal Strip Tightening - Mauro Jorgensen MD Date/Time: 07/27/24 10:40 Surgeon: Mauro Jorgensen MD Pre Op Diagnosis: dermatochalasis lower lids Patient Data Age: 54 Gender: F Height: 1.65 m Weight: 73 kg Last Vital Signs Temp 98.0 F 07/27/24 08:51 Pulse 63 07/27/24 08:51 Resp 16 07/27/24 08:51 BP 126/64 07/27/24 08:51 Pulse Ox 100 07/27/24 08:51 O2 Del Method Room Air 07/27/24 08:51 Allergies Allergy/AdvReac Type Severity Reaction Status Date / Time sulfamethoxazole (From AdvReac Mild Nausea and Verified 07/27/24 09:14 Bactrim) Vomiting trimethoprim (From Bactrim) AdvReac Mild Nausea and Verified 07/27/24 09:14 Vomiting Home Medications ?Medication ?Instructions ?Recorded ?Confirmed ?Type No Home Medications 07/15/24 07/15/24 History Laboratory Tests 07/27/24 08:43 Cotinine Negative Patient hx anesthesia problems: none Family hx anesthesia problems: none Results Review: All pre-operative results and documents have been reviewed as part of the pre-operative evaluation. [facility] Social History Social History Years smoked: 10 Smoking status: Former smoker Tobacco type: cigarettes Smoking end date: 07/15/09 Living arrangements: with family Spiritual care concerns: No Anes - Eval Final PreProcedure Day of Procedure 07/27/24 10:40 Patient weight: normal Lungs: normal air movement Airway: Mallampati scale class II Neurological: alert and oriented Last oral intake: >/= 8 hours ASA classification: I Emergent: no Anesthetic plan: proceed Anesthesia type and monitoring: general LMA and standard monitoring Results Review: All pre-operative results and documents have been reviewed as part of the pre-operative evaluation. Active w walking, no cp or sob. Informed Consent: The patient's anesthetic plan and its attendant risks and benefits were discussed with the patient/family/POA. Questions were solicited and answers provided to the satisfaction of the patient/family/POA.
[2024-07-27] MEDS: TRANEXAMIC ACID 1,000MG/ISO100 1,000 MG/100 ML BAG 200 MG IVPB (10:57)
[2024-07-27] MEDS: ceFAZolin 2 GM/D5W 50 ML 2 GM/50 ML BAG IVPB (11:01)
[2024-07-27] MEDS: LIDO 1%/EPINEPHRINE 1:100,000 20 ML VIAL INFILTRATE (11:58)
== END 2024-07-27 14:40 | disposition home or self-care (01) ==
PROVIDERS: PCP Family Medicine; Visit Provider Surgery Plastic and Reconstructive Surgery
PROC: (CPT 15820; principal; 2024-07-27 10:30)
DX: Z41.1 Encounter for cosmetic surgery (principal); H02.835 Dermatochalasis of left lower eyelid; H02.832 Dermatochalasis of right lower eyelid; Z98.890 Other specified postprocedural states; Z87.891 Personal history of nicotine dependence
CPT/HCPCS: 15820; 21282; 15773; 80307; A9270; J0171; J0690; J1100; J1596; J2003; J2004; J2250; J2405; J2704; J3010; J7030; J7120